=== PATIENT | female | born 1980 | race Caucasian/White ===

== ENCOUNTER 2021-02-17 14:23 | Emergency (ER) | payer BC, OTHER ==
[2021-02-17 16:23] LABS: HEMOGLOBIN 13.4 gm/dl (12.3-15.3); RED BLOOD COUNT 4.58 M/UL (4.00-5.10); WHITE BLOOD COUNT 10.9 K/UL (4.5-11.0)
[2021-02-17 16:51] LABS: BUN/CREATININE RATIO 15 (0-10)
== END 2021-02-17 17:46 | disposition home or self-care (01) ==
LOC: ER1 14:23
PROVIDERS: Physician Assistant
DX: R53.83 Other fatigue (principal); R53.1 Weakness; R20.1 Hypoesthesia of skin; K21.9 Gastro-esophageal reflux disease without esophagitis; E03.9 Hypothyroidism, unspecified; F17.290 Nicotine dependence, other tobacco product, uncomplicated
CPT/HCPCS: 80053; 82550; 82553; 83874; 84439; 84443; 84484; 85025; 93005; 99283

== ENCOUNTER → 2021-04-08 | Outpatient (CLI) | payer BC, OTHER | LOC: KOH-I 08:05 | DX: R05 Cough (principal) | CPT/HCPCS: 71046 ==

== ENCOUNTER 2021-07-05 14:47 | Emergency (ER) | payer BC, OTHER ==
[~2021-07-05] VITALS: Ht 160 cm; Wt 85.7 kg
== END 2021-07-05 17:50 | disposition home or self-care (01) ==
LOC: ER1 14:47
DX: U07.1 COVID-19 (principal); J44.9 Chronic obstructive pulmonary disease, unspecified; E03.9 Hypothyroidism, unspecified; Z23 Encounter for immunization
CPT/HCPCS: 99283; M0243